=== PATIENT | female | born 1955 | race Caucasian/White ===

== ENCOUNTER → 2017-01-22 | Outpatient (CLI) | payer MEDICARE ==
[~2017-01-22] MED LIST: ALLEGRA PO
--- NOTE | ~2017-01-22 | MY11 ---
[facility] A Service of [facility] & [facility] RADIOLOGY TEXT RESULTS PATIENT: JADE TATUM LOCATION: [facility] : 57 UNIT #: [id number] AGE: [address]: Evelin Gonzales MD SEX: F ORDER DR: [id number] [facility] [address]. [place], [place] [address] [id number] O MR#: [id number] Acc #: [id number] NAME: JADE TATUM : 1955 SEX: F STUDY DATE/TIME: 01/22/2017 10:39 UNIT: [facility] ROOM: STUDY DESCRIPTION: MY Mammogram Screening Dig Ahsan Attending Physician: Evelin Gonzales M.D. Ordering Physician: Evelin Gonzales M.D. Primary Care Physician: Evelin Gonzales M.D. MEDICAL IMAGING REPORT This report is preliminary unless electronic signature is present EXAM Digital screening mammogram, 01/22/2017. HISTORY 61-year-old woman; positive family history, aunts. Annual screening. COMPARISON Comparison mammograms date to 07/26/2005, with most recent 01/08/2016. FINDINGS Digital imaging of each breast was completed, utilizing screening protocol. Review includes FDA-approved CAD device. Breast parenchyma remains moderately dense with residual fibroglandular opacities centrally located in each breast. I see no suspicious mass characteristics. There are no interval occurring microcalcifications and no architectural deformity. IMPRESSION Negative mammogram. Annual screening recommended. Patients over the age of 40 are entered into a reminder system with target due date for the next mammogram. A result letter will also be sent to the patient. BIRADS: 1 Negative Dictated by... Jourdan Acuna M.D. THIS IS AN ELECTRONICALLY VERIFIED REPORT Jourdan Acuna M.D. at 01/24/2017 8:08 AM [facility] A Service of [facility] & [facility] RADIOLOGY TEXT RESULTS PATIENT: JADE TATUM LOCATION: [facility] : 57 UNIT #: [id number] AGE: [address]: Evelin Gonzales MD SEX: F ORDER DR: HADLEY/chayo TD: 01/22/2017 13:11 JOB #: [id number] MEDICAL IMAGING REPORT Page 1 of 1 COPY
--- NOTE | ~2017-01-22 | CT138 ---
[facility]. [facility] A Service of [facility] RADIOLOGY TEXT RESULTS PATIENT: JADE TATUM LOCATION: [facility] : 57 UNIT #: [id number] AGE: [address]: Evelin Gonzaels MD SEX: F ORDER DR: [id number] [facility] [address] [place], [place] [address] [id number] O MR#: [id number] [facility] #: [id number] NAME: JADE TATUM. : 1955 SEX: F STUDY DATE/TIME: 01/22/2017 11:28 UNIT: [facility] ROOM: STUDY DESCRIPTION: CT Lung screening initial Attending Physician: Evelin Gonzales M.D. Ordering Physician: Evelin Gonzales M.D. Primary Care Physician: Evelin Gonzales M.D. MEDICAL IMAGING REPORT This report is preliminary unless electronic signature is present EXAM Lung cancer screening protocol CT without contrast, 01/22/2017. INDICATION 61-year-old female with a 50-pack year history of tobacco abuse presenting for baseline screening CT of the chest. Former smoker. Quit smoking 7 years ago. TECHNIQUE Noncontrast CT of the chest was performed utilizing a low-dose lung cancer screening protocol. This CT exam was performed with one or more of the following radiation dose reduction techniques: automatic exposure control, adjustment of mA and/or kV according to patient size, and iterative reconstruction. COMPARISON We have no comparisons. Correlation is made with CT of the abdomen on 11/10/2012. FINDINGS CT CHEST: The lungs demonstrate mild emphysematous change. No suspicious pulmonary nodule, pleural effusion, or pneumonia. Tiny less than 1 cm calcified granulomas are present in the upper lobe on the right. There is some mild biapical scarring. Included thyroid unremarkable. No pericardial effusion or mediastinal adenopathy. Reactive-appearing mediastinal and axillary nodes are present. The patient is status post median sternotomy. Aorta demonstrates atherosclerotic change. There is no focal aneurysm. Coronary artery stents/calcifications. Included upper abdomen demonstrates a probable renal vascular [facility] A Service of [facility] RADIOLOGY TEXT RESULTS PATIENT: JADE TATUM LOCATION: [facility] #: [id number] : 57 UNIT #: [id number] AGE: [address]: Evelin Gonzales MD SEX: F ORDER DR: calcification on the left. The gallbladder is contracted. There is a hemangioma in the right hepatic lobe measuring up to 3.4 cm. This was better demonstrated on the prior contrast-enhanced study from 2012 and is unchanged. Osseous structures demonstrate no suspicious bone lesion. IMPRESSION 1. Negative low-dose CT of the chest utilizing a lung cancer screening protocol. The lungs demonstrate emphysematous change and old healed granulomatous disease. No suspicious pulmonary nodule. 2. Reactive-appearing mediastinal nodes. 3. Incidental benign hemangioma within the liver. 4. Lung-RADS category 1-negative. Continued annual screening with a low-dose CT in 12 months. Dictated by... Sohail Pino M.D. THIS IS AN ELECTRONICALLY VERIFIED REPORT Sohail Pino M.D. at 01/22/2017 4:50 PM MARTHA/georgina TD: 01/22/2017 15:50 JOB #: [id number] MEDICAL IMAGING REPORT Page 1 of 1 COPY
== END | disposition home or self-care (01) ==
LOC: CWCC 10:22
DX: Z12.31 Encounter for screening mammogram for malignant neoplasm of breast (principal); Z80.3 Family history of malignant neoplasm of breast; Z87.891 Personal history of nicotine dependence; J98.4 Other disorders of lung; J84.10 Pulmonary fibrosis, unspecified; D18.03 Hemangioma of intra-abdominal structures
CPT/HCPCS: G0202; G0297